=== PATIENT | female | born 1965 | race African-American/Black ===

== ENCOUNTER 2016-11-11 06:49 | Emergency (ER) | payer OTHER ==
[~2016-11-11] VITALS: Ht 167.6 cm; Wt 120.0 kg
[~2016-11-11 06:49] MED LIST: ASPI81TA81 PO; ATOR1TAB18 PO; CARI350T20 PO; CHLOR50 PO; CLON0.3T PO; CLOP75TA PO; FURO20TA PO; GABA300C5 PO; LEVA750T PO; METF500T PO; METO50TA PO; OMEP20TA PO; ZOLP5TAB3 PO
[2016-11-11 06:52] VITALS: BP 124/82; PULSE 80; RESP 18; TEMP 98.4; O2SAT 99
[2016-11-11] MEDS ORDERED: DULA0.5I SQ (07:13)
[2016-11-11] MEDS ORDERED: SODIUM CHLOR 0.9% 1000 ML INJ 1,000 ML IV ONE (07:13)
[2016-11-11] MEDS ORDERED: MORPHINE SULFATE 4 MG/ML INJ IV PUSH ONE (07:15)
[2016-11-11] MEDS ORDERED: SODIUM CHLORIDE 0.9% FLUSH 10 ML FLUSH IVF PRN (07:15)
[2016-11-11] MEDS ORDERED: ONDANSETRON HCL 4 MG/2 ML VIAL IVP ONE (07:15)
--- NOTE | 2016-11-11 07:18 | PD ---
HPI Chief Complaint: Entertainment Dancer Problem/Complaint Time Seen by Provider: 07:07 Travel History International Travel<30 days: No Contact w/Intl Traveler<30days: No Traveled to known affect area: No History of Present Illness HPI The patient is a 51-year-old [place] female who presents emergency department for a two-week history of nausea, vomiting, upper abdominal discomfort. The patient states she had 5 days of nausea and vomiting, her symptoms is slightly improved, but she continues to have cramping in the upper abdomen. She now complains of a light beige vaginal discharge without any visible blood. The patient's last menstrual cycle was 6 years ago. The patient does have a previous history of cholecystectomy. She denies any fever, chills, sweats, or diarrhea. She does note intermittent constipation. The patient's primary physician is [facility]. The patient is , however , states that her " loves women". The patient denies any dysuria, frequency, or urgency. Symptoms are moderate, there are no known alleviating or exacerbating factors. The patient does have a history of diabetes, is been on metformin for 5 years without previous abdominal discomfort symptoms. PFSH Past Medical History Hx Anticoagulant Therapy: Yes (81 MG ASA DAILY) Anemia: Yes Arthritis: Yes Blood Disorders: Yes (SICKLE CELL) Anxiety: No Depression: No Cancer: No Cardiovascular Problems: Yes (CAD) Chest Pain: No Diabetes: Yes (TYPE II) Patient Takes Glucophage: No Diminished Hearing: No Endocrine: No Gastrointestinal Disorders: Yes (GASTRITIS) Glaucoma: No Genitourinary: No Hiatal Hernia: No Hypertension: Yes Immune Disorder: No Musculoskeletal: Yes Neurologic: No Psychiatric: No Reproductive: No Integumentary: No Immunizations Current: No Sickle Cell Disease: Yes Thyroid Disease: Yes (BOARDERLINE HYPERTHYROID) Ulcer: Yes ?: Not Menopausal: Yes : 5 Para: 5 Past Surgical History Abdominal Surgery: Yes Appendectomy: Yes Section: Yes Cholecystectomy: Yes Gynecologic Surgery: Yes (X 2) Joint Replacement: Yes (right knee) Other Surgery: Yes (GALL STONES REMOVED) Social History Alcohol Use: No Tobacco Use: Yes (5 CIGARETTES A DAY) Substance Use: No Allergies-Medications (Allergen,Severity, Reaction): Coded Allergies: Amoxicillin (Verified Allergy, Severe, ITCHING, 04/30/16) Naprosyn (Verified Allergy, Severe, ITCHING, 04/30/16) Tylenol (Verified Allergy, Severe, 04/30/16) Reported Meds & Prescriptions Reported Meds & Active Scripts Active Reported Trulicity Inj (Dulaglutide Inj) 1.5 Mg/0.5 Ml Pen 1.5 Mg SQ Q7D Zolpidem (Zolpidem Tartrate) 5 Mg Tab 5 Mg PO HS PRN Omeprazole 20 Mg Tab 20 Mg PO DAILY Metoprolol Tartrate 50 Mg Tab 50 Mg PO BID Metformin (Metformin HCl) 500 Mg Tab 500 Mg PO BIDPC With meals Furosemide 20 Mg Tab 20 Mg PO DAILY Clopidogrel (Clopidogrel Bisulfate) 75 Mg Tab 75 Mg PO DAILY Clonidine (Clonidine HCl) 0.3 Mg Tab 0.3 Mg PO DAILY Atorvastatin (Atorvastatin Calcium) 80 Mg Tab 80 Mg PO HS Aspir-81 (Aspirin) 81 Mg Tabdr 81 Mg PO DAILY Review of Systems Except as stated in HPI: all other systems reviewed are Neg General / Constitutional: No: Fever, Chills Cardiovascular: No: Chest Pain or Discomfort Respiratory: No: Shortness of Breath Gastrointestinal: Positive: Nausea, Vomiting, Abdominal Pain, Constipation, No : Diarrhea Genitourinary: Positive: Discharge, No: Urgency, Frequency, Dysuria Skin: No Rash, No Itching Physical Exam Narrative GENERAL: Awake, alert, pleasant 51-year-old female who appears her stated age and is in no acute respiratory distress. SKIN: Focused skin assessment warm/dry. HEAD: Atraumatic. Normocephalic. EYES: No injection or drainage. ENT: No nasal bleeding or discharge. Mucous membranes pink and moist. NECK: Trachea midline. No JVD. CARDIOVASCULAR: Regular rate and rhythm. No murmur appreciated. RESPIRATORY: No accessory muscle use. Clear to auscultation. Breath sounds equal bilaterally. GASTROINTESTINAL: Abdomen soft, obese, no rebound tenderness. Negative McBurney 's. Back: No CVA tenderness. Pelvic: The exam was performed in the presence of a female nurse. External examination reveals no rashes or lesions. Speculum examination reveals scant white vaginal discharge. Cervix is closed. No adnexal tenderness or cervical motion tenderness. MUSCULOSKELETAL: No obvious deformities. No clubbing. No cyanosis. No edema. NEUROLOGICAL: Awake and alert. No obvious cranial nerve deficits. Motor grossly within normal limits. Normal speech. PSYCHIATRIC: Appropriate mood and affect; insight and judgment normal. Data Data Last Documented VS Vital Signs Date Time Temp Pulse Resp B/P Pulse Ox O2 Delivery O2 Flow Rate FiO2 11/11/16 06:52 98.4 80 18 124/82 99 Room Air Orders Complete Blood Count With Diff (11/11/16 07:13) Comprehensive Metabolic Panel (11/11/16 07:13) Gc And Chlamydia Pcr (11/11/16 07:13) Wet Prep Profile (11/11/16 07:13) Iv Access Insert/Monitor (11/11/16 07:13) Ecg Monitoring (11/11/16 07:13) Sodium Chloride 0.9% Flush (Ns Flush) (11/11/16 07:15) Sodium Chlor 0.9% 1000 Ml Inj (Ns 1000 M (11/11/16 07:13) Ondansetron Inj (Zofran Inj) (11/11/16 07:15) Lipase (11/11/16 07:13) Morphine Inj (Morphine Inj) (11/11/16 07:15) Urinalysis - C+S If Indicated (11/11/16 07:19) Labs Laboratory Tests Test 11/11/16 11/11/16 11/11/16 07:20 07:40 08:10 White Blood Count 5.2 TH/MM3 Red Blood Count 4.48 MIL/MM3 Hemoglobin 11.9 GM/DL Hematocrit 36.9 % Mean Corpuscular Volume 82.5 FL Mean Corpuscular Hemoglobin 26.6 PG Mean Corpuscular Hemoglobin 32.3 % Concent Red Cell Distribution Width 14.4 % Platelet Count 266 TH/MM3 Mean Platelet Volume 7.2 FL Neutrophils (%) (Auto) 62.2 % Lymphocytes (%) (Auto) 29.1 % Monocytes (%) (Auto) 6.6 % Eosinophils (%) (Auto) 1.7 % Basophils (%) (Auto) 0.4 % Neutrophils # (Auto) 3.2 TH/MM3 Lymphocytes # (Auto) 1.5 TH/MM3 Monocytes # (Auto) 0.3 TH/MM3 Eosinophils # (Auto) 0.1 TH/MM3 Basophils # (Auto) 0.0 TH/MM3 CBC Comment DIFF FINAL Differential Comment Sodium Level 138 MEQ/L Potassium Level 3.5 MEQ/L Chloride Level 100 MEQ/L Carbon Dioxide Level 34.5 MEQ/L Anion Gap 4 MEQ/L Blood Urea Nitrogen 11 MG/DL Creatinine 0.86 MG/DL Estimat Glomerular Filtration 84 ML/MIN Rate Random Glucose 173 MG/DL Calcium Level 9.3 MG/DL Total Bilirubin 0.3 MG/DL Aspartate Amino Transf 10 U/L (AST/SGOT) Alanine Aminotransferase 21 U/L (ALT/SGPT) Alkaline Phosphatase 53 U/L Total Protein 7.0 GM/DL Albumin 3.6 GM/DL Lipase 138 U/L Clue Cells (Wet Prep) NONE SEEN Vaginal Trichomonas (Wet Prep) NONE SEEN Vaginal Yeast (Wet Prep) NONE SEEN Urine Color YELLOW Urine Turbidity HAZY Urine pH 5.5 Urine Specific Ledbetter 1.013 Urine Protein NEG mg/dL Urine Glucose (UA) NEG mg/dL Urine Ketones NEG mg/dL Urine Occult Blood NEG Urine Nitrite NEG Urine Bilirubin NEG Urine Urobilinogen LESS THAN 2.0 MG/DL Urine Leukocyte Esterase NEG Urine RBC LESS THAN 1 /hpf Urine WBC 1 /hpf Urine Squamous Epithelial 6 /hpf Cells Urine Bacteria RARE /hpf Urine Hyaline Casts 3 /lpf Urine Mucus FEW /lpf Microscopic Urinalysis Comment CULT NOT INDICATED MDM Medical Decision Making Medical Screen Exam Complete: Yes Emergency Medical Condition: Yes Medical Record Reviewed: Yes Interpretation(s) Laboratory Tests Test 11/11/16 11/11/16 11/11/16 07:20 07:40 08:10 White Blood Count 5.2 TH/MM3 Red Blood Count 4.48 MIL/MM3 Hemoglobin 11.9 GM/DL Hematocrit 36.9 % Mean Corpuscular Volume 82.5 FL Mean Corpuscular Hemoglobin 26.6 PG Mean Corpuscular Hemoglobin 32.3 % Concent Red Cell Distribution Width 14.4 % Platelet Count 266 TH/MM3 Mean Platelet Volume 7.2 FL Neutrophils (%) (Auto) 62.2 % Lymphocytes (%) (Auto) 29.1 % Monocytes (%) (Auto) 6.6 % Eosinophils (%) (Auto) 1.7 % Basophils (%) (Auto) 0.4 % Neutrophils # (Auto) 3.2 TH/MM3 Lymphocytes # (Auto) 1.5 TH/MM3 Monocytes # (Auto) 0.3 TH/MM3 Eosinophils # (Auto) 0.1 TH/MM3 Basophils # (Auto) 0.0 TH/MM3 CBC Comment DIFF FINAL Differential Comment Sodium Level 138 MEQ/L Potassium Level 3.5 MEQ/L Chloride Level 100 MEQ/L Carbon Dioxide Level 34.5 MEQ/L Anion Gap 4 MEQ/L Blood Urea Nitrogen 11 MG/DL Creatinine 0.86 MG/DL Estimat Glomerular Filtration 84 ML/MIN Rate Random Glucose 173 MG/DL Calcium Level 9.3 MG/DL Total Bilirubin 0.3 MG/DL Aspartate Amino Transf 10 U/L (AST/SGOT) Alanine Aminotransferase 21 U/L (ALT/SGPT) Alkaline Phosphatase 53 U/L Total Protein 7.0 GM/DL Albumin 3.6 GM/DL Lipase 138 U/L Clue Cells (Wet Prep) NONE SEEN Vaginal Trichomonas (Wet Prep) NONE SEEN Vaginal Yeast (Wet Prep) NONE SEEN Urine Color YELLOW Urine Turbidity HAZY Urine pH 5.5 Urine Specific Ledbetter 1.013 Urine Protein NEG mg/dL Urine Glucose (UA) NEG mg/dL Urine Ketones NEG mg/dL Urine Occult Blood NEG Urine Nitrite NEG Urine Bilirubin NEG Urine Urobilinogen LESS THAN 2.0 MG/DL Urine Leukocyte Esterase NEG Urine RBC LESS THAN 1 /hpf Urine WBC 1 /hpf Urine Squamous Epithelial 6 /hpf Cells Urine Bacteria RARE /hpf Urine Hyaline Casts 3 /lpf Urine Mucus FEW /lpf Microscopic Urinalysis Comment CULT NOT INDICATED Differential Diagnosis Differential diagnosis includes gastritis, pancreatitis, peptic ulcer disease, retained biliary stone, pyelonephritis, PID, cervicitis, UTI. Narrative Course IV was established, labs are drawn and sent, and the patient was placed on cardiac telemetry monitoring and continuous pulse oximetry monitoring. Pelvic exam was performed, essentially unremarkable, wet prep and gonorrhea/chlamydia PCR were sent to lab. UA was sent to lab. The patient was provided morphine, Zofran, and IV fluids for her discomfort. Laboratory evaluation is unremarkable , white count is normal, LFTs are normal, lipase is normal. Wet prep is negative. Gonorrhea and chlamydia are pending, however, exam is benign, we'll not treat immediately, we'll await for results. UA is negative. The patient was reassessed at 8:45 AM, her symptoms had resolved. She'll be discharged home on Bentyl and Zofran. She is advised to follow-up with her primary physician and return if symptoms worsen or progress. Diagnosis Primary Impression: Abdominal pain Qualified Code: R10.10 - Pain of upper abdomen Patient Instructions: General Instructions Additional Instructions: Medications as directed. Advanced diet as tolerated. Clear liquid diet and advance. Follow-up with your primary physician. Please provide the patient a copy of her lab results at discharge. Return if symptoms worsen or progress. Med/Other Pt SpecificInfo: Prescription(s) given Scripts Ondansetron Odt (Zofran Odt)4 Mg Tab4 Mg SL Q6HR PRN (Nausea/Vomiting) #7 TAB Ref 0 Prov:Bogdan Han MD 11/11/16 Dicyclomine (Bentyl)10 Mg Cap10 Mg PO QID #12 CAP Ref 0 Prov:Bogdan Han MD 11/11/16 Disposition: DISCHARGE HOME Condition: Stable Bogdan Han MD Nov 11, 2016 07:18
[2016-11-11 07:48] LABS: AUTOMATED NEUTROPHIL # 3.2 TH/MM3 (1.8-7.7); BASOPHIL % 0.4 % (0.0-2.0); EOSINOPHIL # 0.1 TH/MM3 (0-0.4); EOSINOPHIL % 1.7 % (0.0-4.0); HEMATOCRIT 36.9 % (35.0-46.0); HEMO FLAGS DIFF FINAL; LYMPH % 29.1 % (9.0-44.0); LYMPHOCYTE # 1.5 TH/MM3 (1.0-4.8); MEAN CELL VOLUME 82.5 FL (80.0-100.0); MEAN CORPUSCULAR HEMOGLOBIN 26.6 PG (27.0-34.0); MEAN CORPUSCULAR HGB CONC 32.3 % (32.0-36.0); MONO % 6.6 % (0.0-8.0); NEUT % 62.2 % (16.0-70.0); PLATELET COUNT 266 TH/MM3 (150-450); RED BLOOD COUNT 4.48 MIL/MM3 (4.00-5.30); RED CELL DISTRIBUTION WIDTH 14.4 % (11.6-17.2); WHITE BLOOD COUNT 5.2 TH/MM3 (4.0-11.0)
[2016-11-11 08:06] LABS: ALT (GPT) 21 U/L (10-53); ANION GAP 4 MEQ/L (5-15); AST (GOT) 10 U/L (15-37); BICARBONATE 34.5 MEQ/L (21.0-32.0); BLOOD UREA NITROGEN 11 MG/DL (7-18); CHLORIDE 100 MEQ/L (98-107); GLOMERULAR FILTRATION RATE 84 ML/MIN (>89); POTASSIUM 3.5 MEQ/L (3.5-5.1); SODIUM (NA) 138 MEQ/L (136-145)
[2016-11-11 08:08] LABS: ALKALINE PHOSPHATASE 53 U/L (45-117); TOTAL BILIRUBIN ADULT 0.3 MG/DL (0.2-1.0)
[2016-11-11 08:40] LABS: BACTERIA, URINE RARE /hpf; BLOOD, URINE NEG (NEG); GLUCOSE,URINE NEG (NEG); HYALINE CAST, URINE 3 /lpf (RARE); KETONE, URINE NEG (NEG); MUCUS URINE FEW /lpf (OCC); NITRITE,URINE NEG (NEG); PH, URINE 5.5 (5.0-8.5); SQUAMOUS EPITHELIAL CELL URINE 6 /hpf (0-5); URINE COLOR YELLOW (YELLW/STRAW)
[2016-11-11 08:42] LABS: COMMENT (UR) CULT NOT INDICATED; CULTURE IF INDICATED CULT NOT INDICATED
[2016-11-11] MEDS ORDERED: ZOFR4TAB3 SL (08:48)
[2016-11-11] MEDS ORDERED: DICY10 PO (08:48)
[2016-11-11 09:20] VITALS: BP 179/92
[2016-11-11 10:59] LABS: CHLAMYDIA PCR NOT DETECTED (NOT DETECT); NEISSERIA PCR NOT DETECTED (NOT DETECT)
== END 2016-11-11 09:21 | disposition home or self-care (01) ==
LOC: NEPE 06:49
DX: R10.10 Upper abdominal pain, unspecified (principal); R11.2 Nausea with vomiting, unspecified; E11.9 Type 2 diabetes mellitus without complications; D64.9 Anemia, unspecified; D57.1 Sickle-cell disease without crisis; I10 Essential (primary) hypertension; I25.10 Atherosclerotic heart disease of native coronary artery without angina pectoris; E05.90 Thyrotoxicosis, unspecified without thyrotoxic crisis or storm; M13.80 Other specified arthritis, unspecified site
CPT/HCPCS: 80053; 81001; 83690; 85025; 87210; 87491; 87591; 96361; 96374; 96375; 99284; J2270; J2405; J7030

== ENCOUNTER 2017-05-20 22:46 | Emergency (ER) | payer OTHER, MEDICAID ==
[~2017-05-20] VITALS: Ht 167.6 cm; Wt 120.0 kg
[~2017-05-20 22:46] MED LIST changes: -ATOR1TAB18 PO; +ATOR80TA45 PO; -CARI350T20 PO; -CHLOR50 PO; +DICY10 PO; +DULA0.5I SQ; -GABA300C5 PO; -LEVA750T PO; -OMEP20TA PO; +OMEP20TA93 PO; +ZOFR4TAB3 SL
[2017-05-20 22:47] VITALS: BP 166/100; PULSE 106; RESP 18; TEMP 98.2; O2SAT 96
[2017-05-20] MEDS ORDERED: PANTOPRAZOLE SODIUM 40 MG VIAL IV PUSH ONE (23:00)
[2017-05-20] MEDS ORDERED: SODIUM CHLORIDE 0.9% FLUSH 10 ML FLUSH IVF PRN (23:00)
[2017-05-20] MEDS ORDERED: RESP: ALBUTEROL 2.5 MG/IPRATROPIUM 0.5 MG NEB (SCH) NEB ONE (23:00)
[2017-05-20 23:15] VITALS: O2SAT 98
--- NOTE | 2017-05-20 23:31 | RADRPT ---
EXAM DATE/TIME: 05/20/2017 23:14 [facility] COMPARISON: CHEST SINGLE AP, April 30, 2016, 20:40. INDICATIONS : Shortness of breath x 1 week, Chest pain x 2 days. MEDICAL HISTORY : Diabetes mellitus type II. Hypertension Sickle Cell disease. CAD SURGICAL HISTORY : Cholecystectomy. section. Appendectomy. Cardiac Stent, Right knee replacement ENCOUNTER: Initial ACUITY: 2 days PAIN SCORE: 7/10 LOCATION: Bilateral chest FINDINGS: Single AP view of the chest. Lung volumes are low. Left lung base partially obscured due to patient b sarah habitus. Cardiomediastinal silhouette within normal limits for technique. No evidence of pneumoth orax. No gross evidence of pleural effusion. CONCLUSION: Low lung volumes and obscuration of the left lung base due to patient body habitus. No gross acute ca rdiopulmonary disease identified. Oneal Humphries MD on May 20, 2017 at 23:27 Board Certified Radiologist. This report was verified electronically.
[2017-05-20 23:34] LABS: BASOPHIL % 0.1 % (0.0-2.0); EOSINOPHIL % 0.2 % (0.0-4.0); HEMATOCRIT 34.2 % (35.0-46.0); HEMOGLOBIN 11.4 GM/DL (11.6-15.3); LYMPH % 15.4 % (9.0-44.0); LYMPHOCYTE # 1.2 TH/MM3 (1.0-4.8); MEAN CELL VOLUME 81.4 FL (80.0-100.0); MEAN CORPUSCULAR HEMOGLOBIN 27.2 PG (27.0-34.0); MEAN CORPUSCULAR HGB CONC 33.4 % (32.0-36.0); MEAN PLATELET VOLUME 6.7 FL (7.0-11.0); MONO % 6.8 % (0.0-8.0); MONOCYTE # 0.5 TH/MM3 (0-0.9); NEUT % 77.5 % (16.0-70.0); PLATELET COUNT 284 TH/MM3 (150-450); RED BLOOD COUNT 4.21 MIL/MM3 (4.00-5.30); RED CELL DISTRIBUTION WIDTH 13.9 % (11.6-17.2); WHITE BLOOD COUNT 7.7 TH/MM3 (4.0-11.0)
[2017-05-20 23:45] LABS: ALBUMIN 3.2 GM/DL (3.4-5.0); AST (GOT) 11 U/L (15-37); BICARBONATE 26.7 MEQ/L (21.0-32.0); BLOOD UREA NITROGEN 7 MG/DL (7-18); CALCIUM 8.9 MG/DL (8.5-10.1); CHLORIDE 98 MEQ/L (98-107); CREATININE 0.73 MG/DL (0.50-1.00); GLOMERULAR FILTRATION RATE 101 ML/MIN (>89); GLUCOSE,RANDOM 150 MG/DL (74-106); MAGNESIUM 1.7 MG/DL (1.5-2.5); SODIUM (NA) 135 MEQ/L (136-145)
[2017-05-20 23:47] LABS: ALT (GPT) 18 U/L (10-53)
[2017-05-20 23:50] LABS: ALKALINE PHOSPHATASE 85 U/L (45-117); TOTAL BILIRUBIN ADULT 0.3 MG/DL (0.2-1.0); TROPONIN I LESS THAN 0.02 NG/ML (0.02-0.05)
[2017-05-20 23:52] LABS: INTERNATIONAL NORMALIZED RATIO 1.1 RATIO; PROTHROMBIN TIME - PATIENT 11.1 SEC (9.8-11.6)
--- NOTE | 2017-05-21 00:29 | PD ---
HPI Chief Complaint: Cardiac Complaint Time Seen by Provider: 23:00 Travel History International Travel<30 days: No Contact w/Intl Traveler<30days: No Traveled to known affect area: No History of Present Illness HPI 52-year-old female presents to the emergency department by private transportation for complaint of shortness of breath times one week with cough productive of yellow-green sputum with streaks of blood and chest pain with coughing 2 days. Patient states chest pain occurs when she takes a deep breath and coughs. Patient states she's also had epigastric pain that hurts when she palpates her upper abdominal wall. Patient's had coughing until she has had posttussive emesis. Patient states green sputum and sinus drainage has had streaks of blood in it; no epistaxis. Patient does not know if she's had fever or chills but states that she is she's felt like she's been feverish. Patient was seen by her primary care provider today who recommended her to have a chest x-ray and to start oral antibiotic. Patient was given prescription for Levaquin. Patient took first dose of Levaquin 750 mg today after seeing her provider. Patient states she felt too weak in general to have her chest x-ray and planned on having that performed on Tuesday. Patient does not report any diarrhea or urinary symptoms. Patient does have history of CAD with previous [place] and stent placement in 2016 also has history of hypertension and diabetes. Patient denies dyslipidemia. Patient reports she used her nebulizer at home with some symptom relief. Patient reports she came to the ED tonight as she is worried that she has pneumonia. Patient did not have the flu vaccine. [facility] Past Medical History Narrative Medical CAD [place] cardiac catheterization with stent hypertension dyslipidemia diabetes tobacco use appendectomy cholecystectomy; nursing notes reviewed Hx Anticoagulant Therapy: Yes (81 MG ASA DAILY) Anemia: Yes Arthritis: Yes Blood Disorders: Yes (SICKLE CELL) Anxiety: No Depression: No Cancer: No Cardiovascular Problems: Yes (CAD) Chest Pain: No Diabetes: Yes (TYPE II) Patient Takes Glucophage: No Diminished Hearing: No Endocrine: No Gastrointestinal Disorders: Yes (GASTRITIS) Glaucoma: No Genitourinary: No Hiatal Hernia: No Hypertension: Yes Immune Disorder: No Musculoskeletal: Yes Neurologic: No Psychiatric: No Reproductive: No Integumentary: No Immunizations Current: No Sickle Cell Disease: Yes Thyroid Disease: Yes (BOARDERLINE HYPERTHYROID) Ulcer: Yes ?: Not Menopausal: Yes : 5 Para: 5 Past Surgical History Abdominal Surgery: Yes Appendectomy: Yes Cardiac Surgery: Yes (STENT PLACEMENT 2016) Section: Yes Cholecystectomy: Yes Gynecologic Surgery: Yes (X 2) Joint Replacement: Yes (right knee) Other Surgery: Yes (GALL STONES REMOVED) Social History Alcohol Use: No Tobacco Use: Yes (1-2 CIGARETTES A DAY) Substance Use: No Allergies-Medications (Allergen,Severity, Reaction): Coded Allergies: acetaminophen (Unverified Allergy, Severe, 05/20/17) amoxicillin (Unverified Allergy, Severe, ITCHING, 05/20/17) naproxen (Unverified Allergy, Severe, ITCHING, 05/20/17) Reported Meds & Prescriptions Reported Meds & Active Scripts Active Zofran Odt (Ondansetron Odt) 4 Mg Tab 4 Mg SL Q6HR PRN Bentyl (Dicyclomine HCl) 10 Mg Cap 10 Mg PO QID Reported Trulicity Inj (Dulaglutide Inj) 1.5 Mg/0.5 Ml Pen 1.5 Mg SQ Q7D Zolpidem (Zolpidem Tartrate) 5 Mg Tab 5 Mg PO HS PRN Omeprazole 20 Mg Tab 20 Mg PO DAILY Metoprolol Tartrate 50 Mg Tab 50 Mg PO BID Metformin (Metformin HCl) 500 Mg Tab 500 Mg PO BIDPC With meals Furosemide 20 Mg Tab 20 Mg PO DAILY Clopidogrel (Clopidogrel Bisulfate) 75 Mg Tab 75 Mg PO DAILY Clonidine (Clonidine HCl) 0.3 Mg Tab 0.3 Mg PO DAILY Atorvastatin (Atorvastatin Calcium) 80 Mg Tab 80 Mg PO HS Aspir-81 (Aspirin) 81 Mg Tabdr 81 Mg PO DAILY Review of Systems Except as stated in HPI: all other systems reviewed are Neg General / Constitutional: No: Fever HENT: Positive: Congestion Cardiovascular: Positive: Chest Pain or Discomfort Respiratory: Positive: Cough, Wheezing Gastrointestinal: Positive: Vomiting (posttussive emesis), Abdominal Pain ( epigastric tenderness to palpation) Genitourinary: No: Hematuria, Flank Pain Musculoskeletal: No: Myalgias, Arthralgias Skin: No Rash Neurologic: Positive: Weakness (generalized) Psychiatric: Positive: Anxiety Hematologic/Lymphatic: No: Lymph Node Enlargement Physical Exam Narrative GENERAL: Well-developed well-nourished obese female in no acute distress no respiratory distress SKIN: Warm and dry. HEAD: Normocephalic. EYES: No scleral icterus. No injection or drainage. NECK: Supple, trachea midline. No JVD or lymphadenopathy. CARDIOVASCULAR: Regular rate and rhythm without murmurs, gallops, or rubs. RESPIRATORY: Breath sounds equal bilaterally. No accessory muscle use. GASTROINTESTINAL: Abdomen soft, non-tender, nondistended. MUSCULOSKELETAL: No cyanosis, or edema. BACK: Nontender without obvious deformity. No CVA tenderness. Data Data Last Documented VS Vital Signs Date Time Temp Pulse Resp B/P (MAP) Pulse Ox O2 Delivery O2 Flow Rate FiO2 05/21/17 01:23 05/20/17 23:15 98 21 05/20/17 22:47 98.2 106 18 Room Air Orders Orders Electrocardiogram (05/20/17 23:00) Ckmb (Isoenzyme) Profile (05/20/17 23:00) Complete Blood Count With Diff (05/20/17 23:00) Comprehensive Metabolic Panel (05/20/17 23:00) Magnesium (Mg) (05/20/17 23:00) Prothrombin Time / Inr (Pt) (05/20/17 23:00) Act Partial Throm Time (Ptt) (05/20/17 23:00) Troponin I (05/20/17 23:00) Chest, Single Ap (05/20/17 23:00) Ecg Monitoring (05/20/17 23:00) Bilateral Bp Monitoring (05/20/17 23:00) Iv Access Insert/Monitor (05/20/17 23:00) Oximetry (05/20/17 23:00) Oxygen Administration (05/20/17 23:00) Sodium Chloride 0.9% Flush (Ns Flush) (05/20/17 23:00) Influenzae A/B Antigen (05/20/17 23:00) Blood Culture (05/20/17 23:00) Lactic Acid (05/20/17 23:00) Pantoprazole Inj (Protonix Inj) (05/20/17 23:00) Albuterol-Ipratropium Neb (Duoneb Neb) (05/20/17 23:00) Potassium Chloride (Kcl) (05/21/17 00:30) Ed Discharge Order (05/21/17 00:50) Labs Laboratory Tests Test 05/20/17 23:05 05/20/17 23:10 White Blood Count 7.7 TH/MM3 Red Blood Count 4.21 MIL/MM3 Hemoglobin 11.4 GM/DL Hematocrit 34.2 % Mean Corpuscular Volume 81.4 FL Mean Corpuscular Hemoglobin 27.2 PG Mean Corpuscular Hemoglobin Concent 33.4 % Red Cell Distribution Width 13.9 % Platelet Count 284 TH/MM3 Mean Platelet Volume 6.7 FL Neutrophils (%) (Auto) 77.5 % Lymphocytes (%) (Auto) 15.4 % Monocytes (%) (Auto) 6.8 % Eosinophils (%) (Auto) 0.2 % Basophils (%) (Auto) 0.1 % Neutrophils # (Auto) 6.0 TH/MM3 Lymphocytes # (Auto) 1.2 TH/MM3 Monocytes # (Auto) 0.5 TH/MM3 Eosinophils # (Auto) 0.0 TH/MM3 Basophils # (Auto) 0.0 TH/MM3 CBC Comment DIFF FINAL Differential Comment Prothrombin Time 11.1 SEC Prothromb Time International Ratio 1.1 RATIO Activated Partial Thromboplast Time 24.5 SEC Blood Urea Nitrogen 7 MG/DL Creatinine 0.73 MG/DL Random Glucose 150 MG/DL Total Protein 8.0 GM/DL Albumin 3.2 GM/DL Calcium Level 8.9 MG/DL Magnesium Level 1.7 MG/DL Alkaline Phosphatase 85 U/L Aspartate Amino Transf (AST/SGOT) 11 U/L Alanine Aminotransferase (ALT/SGPT) 18 U/L Total Bilirubin 0.3 MG/DL Sodium Level 135 MEQ/L Potassium Level 3.1 MEQ/L Chloride Level 98 MEQ/L Carbon Dioxide Level 26.7 MEQ/L Anion Gap 10 MEQ/L Estimat Glomerular Filtration Rate 101 ML/MIN Total Creatine Kinase 91 U/L Troponin I LESS THAN 0.02 NG/ML Lactic Acid Level 1.6 mmol/L MDM Medical Decision Making Medical Screen Exam Complete: Yes Emergency Medical Condition: Yes Medical Record Reviewed: Yes Interpretation(s) EKG: Sinus tachycardia rate [address] elevation or injury pattern or ectopy noted Last Impressions Chest X-Ray 05/20/17 2300 Signed Impressions: Service Date/Time: Saturday, May 20, 2017 23:14 - CONCLUSION: Low lung volumes and obscuration of the left lung base due to patient body habitus. No gross acute cardiopulmonary disease identified. Oneal Humphries MD CBC & BMP Diagram 05/20/17 23:05 Total Protein 8.0, Albumin 3.2 L, Calcium Level 8.9, Magnesium Level 1.7, Alkaline Phosphatase 85, Aspartate Amino Transf (AST/SGOT) 11 L, Alanine Aminotransferase (ALT/SGPT) 18, Total Bilirubin 0.3 Vital Signs Date Time Temp Pulse Resp B/P (MAP) Pulse Ox O2 Delivery O2 Flow Rate FiO2 05/20/17 23:15 98 21 05/20/17 22:47 98.2 106 18 166/100 (122) 96 Room Air Differential Diagnosis Sinusitis, bronchitis, pneumonia, CHF, ACS, CAD, [place], viral syndrome, influenza Narrative Course Patient placed on cardiac technologist IV access obtained specimens collected and sent for resulting patient administered DuoNeb updraft 1 patient denies any chest pain and his are taken Levaquin 750 mg times one dose prior to arrival to the emergency department. Patient reading comfortably and voicing no concerns or complaints Lab values resulted and found to be grossly normal range including total white cell count cardiac enzymes and lactic acid. Patient is identified to have mild left shift 77% neutrophils and hypokalemia 3.1 patient given oral replacement potassium Patient is aware of lab results and is desirous of being discharged to home states she was just very worried that she had pneumonia but states that she has no complaints at this time and does not want to be admitted to the hospital. Patient this time appears stable for outpatient management is encouraged to complete course of antibiotic as prescribed by her primary care provider to follow-up with her primary care provider on Tuesday patient reports she has all the medications that she needs at home and does not need any prescriptions in fact she states she has a nebulizer and plenty of albuterol; patient is encouraged to return to the emergency department in the interim for any concerns. Diagnosis Primary Impression: Bronchitis Referrals: Primary Care Physician 3 days Patient Instructions: General Instructions Additional Instructions: Complete course of antibiotic as prescribed Monitor temperature every 4 hours with thermometer take medication as tolerated as needed for fever 100.4F or greater Follow-up with your primary care provider call office on Tuesday to schedule follow-up appointment Return to the emergency department for any concerns or change in condition Med/Other Pt SpecificInfo: No Change to Meds Disposition: 01 DISCHARGE HOME Condition: Stable Monie Cantor MD May 21, 2017 00:29
[2017-05-21] MEDS ORDERED: POTASSIUM CHLORIDE 20 MEQ CONTROLLED RELEASE TAB PO ONE (00:30)
--- NOTE | 2017-05-21 12:39 | EKG ---
Date Performed: 05/20/2017 Time Performed: 22:53:24 PTAGE: 52 years EKG: SINUS TACHYCARDIA LOW QRS VOLTAGE IN PRECORDIAL LEADS NONSPECIFIC T-WAVE ABNORMALITY ABNORM AL RHYTHM ECG Compared to PREVIOUS TRACING , ST & T changes are more prominent. PREVIOUS TRACIN04/30/2016 20.48 DOCTOR: Brigido Calderon Interpretating Date/Time 05/21/2017 12:38:12
== END 2017-05-21 01:25 | disposition home or self-care (01) ==
LOC: NEPC 22:46
DX: J40 Bronchitis, not specified as acute or chronic (principal); E87.6 Hypokalemia; F17.210 Nicotine dependence, cigarettes, uncomplicated; E78.5 Hyperlipidemia, unspecified; E11.9 Type 2 diabetes mellitus without complications; I10 Essential (primary) hypertension; I25.10 Atherosclerotic heart disease of native coronary artery without angina pectoris; Z79.02 Long term (current) use of antithrombotics/antiplatelets; Z79.84 Long term (current) use of oral hypoglycemic drugs
CPT/HCPCS: 71045; 80053; 82550; 83605; 83735; 84484; 85025; 85610; 85730; 87040; 87804; 93005; 94664; 96374; 99285; C9113